=== PATIENT | female | born 1955 | race African-American/Black ===

== ENCOUNTER 2018-06-09 12:14 | Inpatient (IN) | payer OTHER ==
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
[2018-06-09] MEDS ORDERED: guaiFENesin/D-METHORPHAN HB 10 ML UNIT-DOSE CUPS PO PRN (14:24)
[2018-06-09] MEDS ORDERED: NICOTINE POLACRILEX 2 MG GUM BUC PRN (14:24)
[2018-06-09] MEDS ORDERED: LOPERAMIDE HCL 2 MG CAPSULE PO PRN (14:24)
[2018-06-09] MEDS ORDERED: P-EPHED 60MG/TRIPROLIDI 2.5MG TABLET PO PRN (14:24)
[2018-06-09] MEDS ORDERED: MENTHOL/PHENOL 1 EACH UD MM PRN (14:24)
[2018-06-09] MEDS ORDERED: ALBUTEROL SO4 8 GM HFA INHALER IH PRN (14:24)
[2018-06-09] MEDS ORDERED: MAGNESIUM HYDROX 2400MG/30ML ORAL SUSPENSION 30 ML CUP PO PRN (14:24)
[2018-06-09] MEDS ORDERED: MAG HYDROX/AL HYDROX/SIMETH 30 ML UNIT-DOSE CUP PO PRN (14:24)
[2018-06-09] MEDS ORDERED: IBUPROFEN 400 MG TABLET (FP) PO PRN (14:24)
[2018-06-09] MEDS ORDERED: ACETAMINOPHEN 325 MG TABLET (FP) PO PRN (14:24)
[2018-06-09] MEDS ORDERED: MAGNESIUM CITRATE 300 ML BOTTLE PO PRN (14:24)
[2018-06-09] MEDS ORDERED: chlordiazePOXIDE HCL 25 MG CAPSULE PO PRN (14:28)
[2018-06-09] MEDS ORDERED: METHADONE HCL 10 MG TABLET (FOR DETOX USE ONLY) PO ONE ×2 (15:30→23:00)
[2018-06-09] MEDS: chlordiazePOXIDE HCL 25 MG CAPSULE PO SCH ×2 (16:50→22:09)
[2018-06-09 17:33] LABS: URINE APPEARANCE SLCLOUDY; URINE BILIRUBIN NEGATIVE (<2.0 mg/dL); URINE COLOR AMBER; URINE GLUCOSE (UA) NEGATIVE (NEGATIVE); URINE KETONE NEGATIVE (NEGATIVE); URINE NITRITE NEGATIVE (NEGATIVE); URINE UROBILINOGEN 4.0 E.U/dl mg/dL (0.2-1.0)
[2018-06-09 17:37] LABS: URINE LEUK ESTERASE 2+ (NEGATIVE); URINE PROTEIN 1+ (NEGATIVE)
[2018-06-09 17:39] LABS: EPI CELLS FEW /HPF (FEW); URINE BACTERIA RARE /hpf (NONE SEEN); URINE HYALINE CAST 11 /lpf; URINE MUCUS RARE
[2018-06-09] MEDS: MELATONIN 5 MG TABLETS PO PRN (22:09)
[2018-06-09] MEDS: MONTELUKAST NA 10 MG TABLET PO SCH (22:09)
[2018-06-09] MEDS: THIAMINE HCL 100 MG TABLET (FP) PO SCH (22:09)
[2018-06-10] MEDS: chlordiazePOXIDE HCL 25 MG CAPSULE PO SCH ×4 (06:03→22:09)
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
[2018-06-10] MEDS ORDERED: METHADONE HCL 10 MG TABLET (FOR DETOX USE ONLY) PO SCH (10:00)
[2018-06-10 10:31] LABS: HEMATOCRIT 42.9 % (32.4-45.2); MCH 29.8 pg (25.7-33.7); MCHC 32.7 g/dl (32.0-36.0); MEAN PLT VOLUME 12.5 fl (7.5-11.1); PLATELET COUNT 209 K/MM3 (134-434); RBC 4.71 M/mm3 (3.60-5.2); RDW 14.6 % (11.6-15.6)
[2018-06-10] MEDS: PRENATAL VITAMINS W/ FOLIC ACID TABLET (FP) PO SCH (10:43)
[2018-06-10] MEDS: ASPIRIN 81 MG CHEWABLE TABLETS PO SCH (10:43)
[2018-06-10] MEDS: ESCITALOPRAM OXALATE 10 MG TABLET (FP) PO SCH (10:43)
[2018-06-10] MEDS: amLODIPine BESYLATE 10 MG TABLET (FP) PO SCH (10:44)
[2018-06-10] MEDS: NICOTINE 14 MG/24 HOURS TOPICAL PATCH TD SCH (10:44)
--- NOTE | 2018-06-10 11:31 | PN ---
[facility] CIWA - CIWA Score Nausea/Vomitin-Mild Nausea/No Vomiting Muscle Tremors: 3 Anxiety: 2 Agitation: 3 Paroxysmal Sweats: 1-Minimal Palms Moist Orientation: 0-Oriented Tacttile Disturbances: 1-Very Mild Itch/Numbness Auditory Disturbances: 0-None Visual Disturbances: 0-None Headache: 1-Very Mild CIWA-Ar Total Score: 12 [facility] COWS - Scale Resting Pulse: 0= [place] 80 or Below Sweatin= Chills/Flushing Restless Observation: 1= Difficult to Sit Still Pupil Size: 0= Normal to Room Light Bone or Joint Aches: 2= Severe Diffuse Aches Runny Nose/ Eye Tearin= Nasal Congestion GI Upset > 30mins: 2= Nausea/Diarrhea Tremor Observation of Outstretched Hands: 2= Slight Tremor Visible Yawning Observation: 1= 1-2x During Session Anxiety or Irritability: 2=Irritable/Anxious Goose Flesh Skin: 0=Smooth Skin COWS Score: 12 [facility] Progress Note (SOAP) Subjective: body ache tremor sweat restlessness anxiety muscle cramping hard stool Objective: 06/10/18 11:30 Vital Signs Temperature 96.6 F L 06/10/18 10:20 Pulse Rate 81 06/10/18 10:20 Respiratory Rate 18 06/10/18 10:20 Blood Pressure 144/99 06/10/18 10:20 O2 Sat by Pulse Oximetry (%) Laboratory Last Values WBC 12.0 K/mm3 (4.0-10.0) H 06/10/18 06:00 RBC 4.71 M/mm3 (3.60-5.2) 06/10/18 06:00 Hgb 14.0 GM/dL (10.7-15.3) 06/10/18 06:00 Hct 42.9 % (32.4-45.2) 06/10/18 06:00 MCV 91.0 fl (80-96) 06/10/18 06:00 MCH 29.8 pg (25.7-33.7) 06/10/18 06:00 MCHC 32.7 g/dl (32.0-36.0) 06/10/18 06:00 RDW 14.6 % (11.6-15.6) 06/10/18 06:00 Plt Count 209 K/MM3 (134-434) 06/10/18 06:00 MPV 12.5 fl (7.5-11.1) H 06/10/18 06:00 Urine Color Natalie 06/09/18 16:12 Urine Appearance Slcloudy 06/09/18 16:12 Urine pH 5.0 (5.0-8.0) 06/09/18 16:12 Ur Specific [place] 1.021 (1.001-1.035) 06/09/18 16:12 Urine Protein 1+ (NEGATIVE) H 06/09/18 16:12 Urine Glucose (UA) Negative (NEGATIVE) 06/09/18 16:12 Urine Ketones Negative (NEGATIVE) 06/09/18 16:12 Urine Blood Negative (NEGATIVE) 06/09/18 16:12 Urine Nitrite Negative (NEGATIVE) 06/09/18 16:12 Urine Bilirubin Negative (<2.0 mg/dL) 06/09/18 16:12 Urine Urobilinogen 4.0 e.u/dl mg/dL (0.2-1.0) H 06/09/18 16:12 Ur Leukocyte Esterase 2+ (NEGATIVE) H 06/09/18 16:12 Urine WBC (Auto) 31 /hpf (3-5) 06/09/18 16:12 Urine RBC (Auto) 5 /hpf (0-3) 06/09/18 16:12 Ur Epithelial Cells Few /HPF (FEW) 06/09/18 16:12 Urine Bacteria Rare /hpf (NONE SEEN) 06/09/18 16:12 Hyaline Casts 11 /lpf 06/09/18 16:12 Urine Mucus Rare 06/09/18 16:12 RPR Titer Nonreactive (NONREACTIVE) 06/10/18 06:00 HIV 1&2 Antibody Screen Negative 06/09/18 06:00 HIV P24 Antigen Negative 06/09/18 06:00 lab noted Assessment: 06/10/18 11:30 withdrawal sx consitpation Plan: continue detox colace 100 mg tid encourage administer MOM
[2018-06-10] MEDS ORDERED: ONDANSETRON *ODT* 4 MG TABLET SL ONE (11:53)
[2018-06-10] MEDS ORDERED: FLU VACCINE QUAD 60 MCG/0.5 ML (MDV 18-19) IM ONE (12:00)
[2018-06-10 12:28] LABS: ALBUMIN 3.6 g/dl (3.4-5.0); ALK PHOS 132 U/L (45-117); ANION GAP 8 MMOL/L (8-16); BILIRUBIN,TOTAL 0.3 mg/dL (0.2-1); BLOOD UREA NITROGEN 35 mg/dL (7-18); CALCIUM 8.8 mg/dL (8.5-10.1); CHLORIDE 105 mmol/L (98-107); CO2 26 mmol/L (21-32); CREATININE 2.2 mg/dL (0.55-1.3); GLUCOSE,RANDOM 106 mg/dL (74-106); POTASSIUM 3.5 mmol/L (3.5-5.1); SGOT/AST 78 U/L (15-37); SGPT/ALT 105 U/L (13-61); SODIUM 139 mmol/L (136-145); TOT PROT 8.4 g/dl (6.4-8.2)
[2018-06-10] MEDS: DOCUSATE SODIUM 100 MG CAPSULE (FP) PO SCH ×2 (14:36→22:09)
[2018-06-10] MEDS: THIAMINE HCL 100 MG TABLET (FP) PO SCH (22:09)
[2018-06-10] MEDS: MONTELUKAST NA 10 MG TABLET PO SCH (22:09)
[2018-06-10] MEDS: MELATONIN 5 MG TABLETS PO PRN (22:10)
[2018-06-10] MEDS: hydrOXYzine PAMOATE 50 MG CAPSULE (FP) PO PRN (22:13)
[2018-06-11] MEDS: DOCUSATE SODIUM 100 MG CAPSULE (FP) PO SCH ×3 (06:11→22:29)
[2018-06-11] MEDS: chlordiazePOXIDE HCL 25 MG CAPSULE PO SCH ×2 (06:11→10:38)
[2018-06-11] MEDS: ESCITALOPRAM OXALATE 10 MG TABLET (FP) PO SCH (10:37)
[2018-06-11] MEDS: METHADONE HCL 5 MG TABLET (FOR DETOX USE ONLY) PO SCH (10:37)
[2018-06-11] MEDS: ASPIRIN 81 MG CHEWABLE TABLETS PO SCH (10:37)
[2018-06-11] MEDS: amLODIPine BESYLATE 10 MG TABLET (FP) PO SCH (10:37)
[2018-06-11] MEDS: PRENATAL VITAMINS W/ FOLIC ACID TABLET (FP) PO SCH (10:38)
[2018-06-11] MEDS: NICOTINE 14 MG/24 HOURS TOPICAL PATCH TD SCH (10:39)
--- NOTE | 2018-06-11 14:13 | PN ---
[facility] CIWA - CIWA Score Nausea/Vomitin-No Nausea/No Vomiting Muscle Tremors: None Anxiety: 0-No Anxiety, at Ease Agitation: 1-Slight > Activity Paroxysmal Sweats: No Perspiration Orientation: 0-Oriented Tacttile Disturbances: 0-None Auditory Disturbances: 0-None Visual Disturbances: 0-None Headache: 1-Very Mild CIWA-Ar Total Score: 2 S COWS - Scale Resting Pulse: 0= [place] 80 or Below Sweatin= No chills or Flushing Restless Observation: 0= Sits Still Pupil Size: 0= Normal to Room Light Bone or Joint Aches: 1= Mild Discomfort Runny Nose/ Eye Tearin= None GI Upset > 30mins: 0= None Tremor Observation of Outstretched Hands: 0= None Yawning Observation: 0= None Anxiety or Irritability: 0= None Goose Flesh Skin: 0=Smooth Skin COWS Score: 1 [facility] Progress Note (SOAP) Subjective: PATIENT MILDLY IRRITABLE, MUSCLE ACHES AND HEADACHE. Objective: 06/11/18 14:10 Laboratory Tests 06/09/18 06/09/18 06/10/18 06:00 16:12 06:00 WBC 12.0 H RBC 4.71 Hgb 14.0 Hct 42.9 MCV 91.0 MCH 29.8 MCHC 32.7 RDW 14.6 Plt Count 209 MPV 12.5 H Sodium Potassium Chloride Carbon Dioxide Anion Gap BUN Creatinine Creat Clearance w eGFR Random Glucose Calcium Total Bilirubin AST ALT Alkaline Phosphatase Total Protein Albumin Urine Color Natalie Urine Appearance Slcloudy Urine pH 5.0 Ur Specific [place] 1.021 Urine Protein 1+ H Urine Glucose (UA) Negative Urine Ketones Negative Urine Blood Negative Urine Nitrite Negative Urine Bilirubin Negative Urine Urobilinogen 4.0 e.u/dl H Ur Leukocyte Esterase 2+ H Urine WBC (Auto) 31 Urine RBC (Auto) 5 Ur Epithelial Cells Few Urine Bacteria Rare Hyaline Casts 11 Urine Mucus Rare RPR Titer HIV 1&2 Antibody Screen Negative HIV P24 Antigen Negative 06/10/18 06/10/18 06:00 06:00 WBC RBC Hgb Hct MCV MCH MCHC RDW Plt Count MPV Sodium 139 Potassium 3.5 Chloride 105 Carbon Dioxide 26 Anion Gap 8 BUN 35 H Creatinine 2.2 H Creat Clearance w eGFR 22.77 Random Glucose 106 Calcium 8.8 Total Bilirubin 0.3 AST 78 H ALT 105 H Alkaline Phosphatase 132 H Total Protein 8.4 H Albumin 3.6 Urine Color Urine Appearance Urine pH Ur Specific [place] Urine Protein Urine Glucose (UA) Urine Ketones Urine Blood Urine Nitrite Urine Bilirubin Urine Urobilinogen Ur Leukocyte Esterase Urine WBC (Auto) Urine RBC (Auto) Ur Epithelial Cells Urine Bacteria Hyaline Casts Urine Mucus RPR Titer Nonreactive HIV 1&2 Antibody Screen HIV P24 Antigen PE: SKIN WARM AND DRY ALERT AND ORIENTED \ CAR S1S2 RESP CTA BL EXT AMB AD DIANNA NEURO CN 1-X11 GROSSLY INTACT, +PERRLA PSYCH +IRRITABILITY Assessment: 06/11/18 14:11 WITHDRAWAL SYNDROME Plan: CONTINUE DETOX PER PROTOCOL
[2018-06-11] MEDS: THIAMINE HCL 100 MG TABLET (FP) PO SCH (22:27)
[2018-06-11] MEDS: MELATONIN 5 MG TABLETS PO PRN (22:28)
[2018-06-11] MEDS: chlordiazePOXIDE 5 MG CAPSULE PO SCH ×2 (22:29)
[2018-06-11] MEDS: MONTELUKAST NA 10 MG TABLET PO SCH (22:32)
[2018-06-11] MEDS: hydrOXYzine PAMOATE 50 MG CAPSULE (FP) PO PRN (22:32)
[2018-06-12] MEDS: chlordiazePOXIDE 5 MG CAPSULE PO SCH ×2 (05:53→10:20)
[2018-06-12] MEDS: DOCUSATE SODIUM 100 MG CAPSULE (FP) PO SCH ×3 (05:53→22:25)
[2018-06-12] MEDS: PRENATAL VITAMINS W/ FOLIC ACID TABLET (FP) PO SCH (10:20)
[2018-06-12] MEDS: ASPIRIN 81 MG CHEWABLE TABLETS PO SCH (10:20)
[2018-06-12] MEDS: METHADONE HCL 5 MG TABLET (FOR DETOX USE ONLY) PO SCH (10:20)
[2018-06-12] MEDS: ESCITALOPRAM OXALATE 10 MG TABLET (FP) PO SCH (10:20)
[2018-06-12] MEDS: amLODIPine BESYLATE 10 MG TABLET (FP) PO SCH (10:20)
[2018-06-12] MEDS: NICOTINE 14 MG/24 HOURS TOPICAL PATCH TD SCH (10:23)
--- NOTE | 2018-06-12 15:46 | PN ---
S Progress Note (SOAP) Subjective: Diarrhea, tremors, sweats and interrupted sleep Objective: 06/12/18 15:45 Vital Signs 06/12/18 06/12/18 10:25 14:00 Temperature 98.1 F 97.7 F Pulse Rate 94 H 93 H Respiratory 19 18 Rate Blood Pressure 160/86 147/86 Laboratory Last Values WBC 12.0 K/mm3 (4.0-10.0) H 06/10/18 06:00 RBC 4.71 M/mm3 (3.60-5.2) 06/10/18 06:00 Hgb 14.0 GM/dL (10.7-15.3) 06/10/18 06:00 Hct 42.9 % (32.4-45.2) 06/10/18 06:00 MCV 91.0 fl (80-96) 06/10/18 06:00 MCH 29.8 pg (25.7-33.7) 06/10/18 06:00 MCHC 32.7 g/dl (32.0-36.0) 06/10/18 06:00 RDW 14.6 % (11.6-15.6) 06/10/18 06:00 Plt Count 209 K/MM3 (134-434) 06/10/18 06:00 MPV 12.5 fl (7.5-11.1) H 06/10/18 06:00 Sodium 139 mmol/L (136-145) 06/10/18 06:00 Potassium 3.5 mmol/L (3.5-5.1) 06/10/18 06:00 Chloride 105 mmol/L (98-107) 06/10/18 06:00 Carbon Dioxide 26 mmol/L (21-32) 06/10/18 06:00 Anion Gap 8 MMOL/L (8-16) 06/10/18 06:00 BUN 35 mg/dL (7-18) H 06/10/18 06:00 Creatinine 2.2 mg/dL (0.55-1.3) H 06/10/18 06:00 Creat Clearance w eGFR 22.77 (>60) 06/10/18 06:00 Random Glucose 106 mg/dL (74-106) 06/10/18 06:00 Calcium 8.8 mg/dL (8.5-10.1) 06/10/18 06:00 Total Bilirubin 0.3 mg/dL (0.2-1) 06/10/18 06:00 AST 78 U/L (15-37) H 06/10/18 06:00 ALT 105 U/L (13-61) H 06/10/18 06:00 Alkaline Phosphatase 132 U/L (45-117) H 06/10/18 06:00 Total Protein 8.4 g/dl (6.4-8.2) H 06/10/18 06:00 Albumin 3.6 g/dl (3.4-5.0) 06/10/18 06:00 Urine Color Natalie 06/09/18 16:12 Urine Appearance Slcloudy 06/09/18 16:12 Urine pH 5.0 (5.0-8.0) 06/09/18 16:12 Ur Specific [place] 1.021 (1.001-1.035) 06/09/18 16:12 Urine Protein 1+ (NEGATIVE) H 06/09/18 16:12 Urine Glucose (UA) Negative (NEGATIVE) 06/09/18 16:12 Urine Ketones Negative (NEGATIVE) 06/09/18 16:12 Urine Blood Negative (NEGATIVE) 06/09/18 16:12 Urine Nitrite Negative (NEGATIVE) 06/09/18 16:12 Urine Bilirubin Negative (<2.0 mg/dL) 06/09/18 16:12 Urine Urobilinogen 4.0 e.u/dl mg/dL (0.2-1.0) H 06/09/18 16:12 Ur Leukocyte Esterase 2+ (NEGATIVE) H 06/09/18 16:12 Urine WBC (Auto) 31 /hpf (3-5) 06/09/18 16:12 Urine RBC (Auto) 5 /hpf (0-3) 06/09/18 16:12 Ur Epithelial Cells Few /HPF (FEW) 06/09/18 16:12 Urine Bacteria Rare /hpf (NONE SEEN) 06/09/18 16:12 Hyaline Casts 11 /lpf 06/09/18 16:12 Urine Mucus Rare 06/09/18 16:12 RPR Titer Nonreactive (NONREACTIVE) 06/10/18 06:00 HIV 1&2 Antibody Screen Negative 06/09/18 06:00 HIV P24 Antigen Negative 06/09/18 06:00 Labs noted Assessment: 06/12/18 15:45 Withdrawal sx Plan: Continue detox
[2018-06-12] MEDS: chlordiazePOXIDE HCL 10 MG CAPSULE PO SCH ×2 (17:56→22:25)
[2018-06-12] MEDS: THIAMINE HCL 100 MG TABLET (FP) PO SCH (22:25)
[2018-06-12] MEDS: MONTELUKAST NA 10 MG TABLET PO SCH (22:25)
[2018-06-13] MEDS: chlordiazePOXIDE HCL 10 MG CAPSULE PO SCH ×2 (05:56→10:02)
[2018-06-13] MEDS: DOCUSATE SODIUM 100 MG CAPSULE (FP) PO SCH ×3 (05:56→23:06)
[2018-06-13] MEDS: ESCITALOPRAM OXALATE 10 MG TABLET (FP) PO SCH (09:53)
[2018-06-13] MEDS: ASPIRIN 81 MG CHEWABLE TABLETS PO SCH (09:53)
[2018-06-13] MEDS: amLODIPine BESYLATE 10 MG TABLET (FP) PO SCH (09:53)
[2018-06-13] MEDS: PRENATAL VITAMINS W/ FOLIC ACID TABLET (FP) PO SCH (09:54)
[2018-06-13] MEDS: NICOTINE 14 MG/24 HOURS TOPICAL PATCH TD SCH (09:55)
[2018-06-13] MEDS ORDERED: METHADONE HCL 10 MG TABLET (FOR DETOX USE ONLY) PO SCH (10:00)
--- NOTE | 2018-06-13 15:43 | PN ---
[facility] Progress Note (SOAP) Subjective: feeling better no tremor no body ache no gi distress Objective: 06/13/18 15:43 Vital Signs Temperature 97.9 F 06/13/18 15:19 Pulse Rate 92 H 06/13/18 15:19 Respiratory Rate 18 06/13/18 15:19 Blood Pressure 118/83 06/13/18 15:19 O2 Sat by Pulse Oximetry (%) Laboratory Last Values WBC 12.0 K/mm3 (4.0-10.0) H 06/10/18 06:00 RBC 4.71 M/mm3 (3.60-5.2) 06/10/18 06:00 Hgb 14.0 GM/dL (10.7-15.3) 06/10/18 06:00 Hct 42.9 % (32.4-45.2) 06/10/18 06:00 MCV 91.0 fl (80-96) 06/10/18 06:00 MCH 29.8 pg (25.7-33.7) 06/10/18 06:00 MCHC 32.7 g/dl (32.0-36.0) 06/10/18 06:00 RDW 14.6 % (11.6-15.6) 06/10/18 06:00 Plt Count 209 K/MM3 (134-434) 06/10/18 06:00 MPV 12.5 fl (7.5-11.1) H 06/10/18 06:00 Sodium 139 mmol/L (136-145) 06/10/18 06:00 Potassium 3.5 mmol/L (3.5-5.1) 06/10/18 06:00 Chloride 105 mmol/L (98-107) 06/10/18 06:00 Carbon Dioxide 26 mmol/L (21-32) 06/10/18 06:00 Anion Gap 8 MMOL/L (8-16) 06/10/18 06:00 BUN 35 mg/dL (7-18) H 06/10/18 06:00 Creatinine 2.2 mg/dL (0.55-1.3) H 06/10/18 06:00 Creat Clearance w eGFR 22.77 (>60) 06/10/18 06:00 Random Glucose 106 mg/dL (74-106) 06/10/18 06:00 Calcium 8.8 mg/dL (8.5-10.1) 06/10/18 06:00 Total Bilirubin 0.3 mg/dL (0.2-1) 06/10/18 06:00 AST 78 U/L (15-37) H 06/10/18 06:00 ALT 105 U/L (13-61) H 06/10/18 06:00 Alkaline Phosphatase 132 U/L (45-117) H 06/10/18 06:00 Total Protein 8.4 g/dl (6.4-8.2) H 06/10/18 06:00 Albumin 3.6 g/dl (3.4-5.0) 06/10/18 06:00 Urine Color Natalie 06/09/18 16:12 Urine Appearance Slcloudy 06/09/18 16:12 Urine pH 5.0 (5.0-8.0) 06/09/18 16:12 Ur Specific [place] 1.021 (1.001-1.035) 06/09/18 16:12 Urine Protein 1+ (NEGATIVE) H 06/09/18 16:12 Urine Glucose (UA) Negative (NEGATIVE) 06/09/18 16:12 Urine Ketones Negative (NEGATIVE) 06/09/18 16:12 Urine Blood Negative (NEGATIVE) 06/09/18 16:12 Urine Nitrite Negative (NEGATIVE) 06/09/18 16:12 Urine Bilirubin Negative (<2.0 mg/dL) 06/09/18 16:12 Urine Urobilinogen 4.0 e.u/dl mg/dL (0.2-1.0) H 06/09/18 16:12 Ur Leukocyte Esterase 2+ (NEGATIVE) H 06/09/18 16:12 Urine WBC (Auto) 31 /hpf (3-5) 06/09/18 16:12 Urine RBC (Auto) 5 /hpf (0-3) 06/09/18 16:12 Ur Epithelial Cells Few /HPF (FEW) 06/09/18 16:12 Urine Bacteria Rare /hpf (NONE SEEN) 06/09/18 16:12 Hyaline Casts 11 /lpf 06/09/18 16:12 Urine Mucus Rare 06/09/18 16:12 RPR Titer Nonreactive (NONREACTIVE) 06/10/18 06:00 HIV 1&2 Antibody Screen Negative 06/09/18 06:00 HIV P24 Antigen Negative 06/09/18 06:00 lab noted renal insufficient patient agrees to follow up with her primary care provider for possible nephrology referral 06/13/18 15:45 Assessment: 06/13/18 15:44 mild withdrawal sx Plan: medically supervised detox
[2018-06-13] MEDS: THIAMINE HCL 100 MG TABLET (FP) PO SCH (23:05)
[2018-06-13] MEDS: MONTELUKAST NA 10 MG TABLET PO SCH (23:05)
[2018-06-13] MEDS: MELATONIN 5 MG TABLETS PO PRN (23:06)
[2018-06-14] MEDS ORDERED: METHADONE HCL 5 MG TABLET (FOR DETOX USE ONLY) PO SCH (06:00)
[2018-06-14] MEDS: DOCUSATE SODIUM 100 MG CAPSULE (FP) PO SCH (06:18)
[2018-06-14] MEDS: ESCITALOPRAM OXALATE 10 MG TABLET (FP) PO SCH (09:16)
[2018-06-14] MEDS: NICOTINE 14 MG/24 HOURS TOPICAL PATCH TD SCH (09:16)
[2018-06-14] MEDS: PRENATAL VITAMINS W/ FOLIC ACID TABLET (FP) PO SCH (09:16)
[2018-06-14] MEDS: amLODIPine BESYLATE 10 MG TABLET (FP) PO SCH (09:16)
[2018-06-14] MEDS: ASPIRIN 81 MG CHEWABLE TABLETS PO SCH (09:16)
[2018-06-14 09:24] VITALS: BP 146/81; PULSE 89; TEMP 97.3
--- NOTE | 2018-06-14 21:17 | DS ---
[facility] Detox Discharge Summary Admission Date: 06/09/18 Discharge Date: 06/14/18 - History Present History: Alcohol Dependence, Opioid Dependence Additional Comments: Admitted with alcohol and heroin withdrawal. Alcohol use disorder began at age 16 and heroin use disorder began at age 26. - Physical Exam Results Vital Signs: Vital Signs Temperature 97.3 F L 06/14/18 09:24 Pulse Rate 89 06/14/18 09:24 Respiratory Rate 18 06/14/18 09:24 Blood Pressure 146/81 06/14/18 09:24 O2 Sat by Pulse Oximetry (%) Pertinent Admission Physical Exam Findings: Patient was admitted with alcohol and opiate withdrawal symptoms. Lab Results WBC 12.0 K/mm3 (4.0-10.0) H 06/10/18 06:00 RBC 4.71 M/mm3 (3.60-5.2) 06/10/18 06:00 Hgb 14.0 GM/dL (10.7-15.3) 06/10/18 06:00 Hct 42.9 % (32.4-45.2) 06/10/18 06:00 MCV 91.0 fl (80-96) 06/10/18 06:00 MCHC 32.7 g/dl (32.0-36.0) 06/10/18 06:00 RDW 14.6 % (11.6-15.6) 06/10/18 06:00 Plt Count 209 K/MM3 (134-434) 06/10/18 06:00 Sodium 139 mmol/L (136-145) 06/10/18 06:00 Potassium 3.5 mmol/L (3.5-5.1) 06/10/18 06:00 Chloride 105 mmol/L (98-107) 06/10/18 06:00 Carbon Dioxide 26 mmol/L (21-32) 06/10/18 06:00 Anion Gap 8 MMOL/L (8-16) 06/10/18 06:00 BUN 35 mg/dL (7-18) H 06/10/18 06:00 Creatinine 2.2 mg/dL (0.55-1.3) H 06/10/18 06:00 Random Glucose 106 mg/dL (74-106) 06/10/18 06:00 Calcium 8.8 mg/dL (8.5-10.1) 06/10/18 06:00 Labs reviewed. - Treatment Hospital Course: Detox Protocol Followed, Detoxed Safely, Responded well, Discharged Condition Good - Medication Discharge Medications: Ambulatory Orders Aspirin [ASA -] 81 mg PO DAILY 06/09/18 Escitalopram Oxalate [Lexapro -] 10 mg PO DAILY 06/09/18 Albuterol Sulfate Inhaler - [Ventolin HFA Inhaler -] 2 inh PO Q4H PRN #1 inhaler 06/13/18 Amlodipine Besylate [Norvasc -] 10 mg PO DAILY #30 tablet 06/13/18 Montelukast Na [Singulair -] 10 mg PO HS #30 tablet 06/13/18 - Diagnosis (1) Alcohol dependence with uncomplicated withdrawal Status: Acute (2) Opioid dependence with withdrawal Status: Acute (3) COPD (chronic obstructive pulmonary disease) Status: Chronic Qualifiers: COPD type: unspecified COPD Qualified Code(s): J44.9 - Chronic obstructive pulmonary disease, unspecified (4) HTN (hypertension) Status: Chronic Qualifiers: Hypertension type: essential hypertension Qualified Code(s): I10 - Essential (primary) hypertension (5) Hep C w/o coma, chronic Status: Chronic - AMA Did Patient Leave Against Medical Advice: No
== END 2018-06-14 11:53 | disposition home or self-care (01) | DRG 773 ==
LOC: YASAS 12:14 → Y6N 15:08
PROC: HZ2ZZZZ Detoxification Services for Substance Abuse Treatment (ICD-10-PCS; principal; 2018-06-09)
DX: F11.23 Opioid dependence with withdrawal (principal); F10.230 Alcohol dependence with withdrawal, uncomplicated; F19.24 Other psychoactive substance dependence with psychoactive substance-induced mood disorder; F43.10 Post-traumatic stress disorder, unspecified; F32.9 Major depressive disorder, single episode, unspecified; I10 Essential (primary) hypertension; J44.9 Chronic obstructive pulmonary disease, unspecified; J45.909 Unspecified asthma, uncomplicated; B18.2 Chronic viral hepatitis C
CPT/HCPCS: 36415; 80053; 81003; 81015; 85027; 86593; 87389; 90688; G0008; Q0162